=== PATIENT | female | born 1995 | race Caucasian/White ===

== ENCOUNTER 2017-11-07 14:07 | Observation (INO) | payer OTHER ==
[2017-11-07] MEDS ORDERED: NS 0.9% 1000 ML* 2,000 ML IV ONE (14:42)
[2017-11-07 15:19] LABS: ABS Basophils 0.1 10^3/ul (0-0.2); ABS Eosinophils 0 10^3/ul (0-0.6); ABS Lymphocytes 0.6 10^3/ul (1.0-4.8); ABS Monocytes 0.6 10^3/ul (0-0.8); ABS Nucleated RBC 0 10^3/ul; Eosinophil % 0.1 % (0-6); Hematocrit 39 % (35-47); Hemoglobin 13.6 g/dl (12.0-16.0); Lymphocyte % 4.3 % (25-47); Mean Corpuscular HGB Conc 35 g/dl (31-36); Mean Corpuscular Hemoglobin 30 pg (27-31); Mean Corpuscular Volume 86 fL (80-97); Mean Platelet Volume 7.6 um3 (7.4-10.4); Nucleated Red Blood Cells % 0; Platelet Count 370 10^3/ul (150-450); Red Blood Count 4.58 10^6/ul (4.00-5.40); Red Cell Distribution Width 12 % (10.5-15); White Blood Count 14.4 10^3/ul (3.5-10.8)
[2017-11-07 15:21] LABS: Urine Appearance Cloudy; Urine Blood Negative (Negative); Urine Color Amber; Urine Ketones 2+ (Negative); Urine Protein 1+(30 mg/dL) (Negative); Urine Red Blood Cell 1+(3-5/hpf) (Absent); Urine Specific Gravity 1.027 (1.010-1.030); Urine Urobilinogen Negative (Negative); Urine White Blood Cell 1+(6-10/hpf) (Absent)
[2017-11-07 15:27] LABS: INR 1.08 (0.77-1.02)
[2017-11-07 15:38] LABS: EGFR Non-African American 81.7 (>60)
[2017-11-07] MEDS ORDERED: cefTRIAXone(*) 1 GM in NS 0.9% 50 ML* 50 ML IVPB ONE (16:12)
[2017-11-07] MEDS ORDERED: Morphine VIAL* 4 MG/ML VIAL (1 ml vial) IV ONE ×2 (16:23→16:49)
[2017-11-07] MEDS ORDERED: Ondansetron ODT TAB* 4 MG PO ONE (16:23)
[2017-11-07] MEDS ORDERED: Iohexol 350* (CONTRAST) 500 ML MDV IV ONE (16:24)
[2017-11-07] MEDS ORDERED: Acetaminophen TAB* 325 MG PO ONE (16:30)
--- NOTE | 2017-11-07 17:43 | RAD ---
INDICATION: 21-year-old with cough and right flank pain. Assess for pulmonary embolus or pyelonephritis. COMPARISON: None TECHNIQUE: Axial source images were obtained from the thoracic inlet to the symphysis pubis following administration of oral contrast only and using CT and radiographic technique 79 mL Omnipaque 350 was utilized. Coronal and sagittal reconstructed images were acquired. CHEST FINDINGS: Neck/thyroid: The visualized neck to include the thyroid appear normal. Chest wall: There is dense breast parenchyma which is not unusual for patient's age. However, there are multiple areas of parenchymal nodularity most conspicuous in the left and measuring up to 2.8 cm which may represent solid lesions such as fibroadenomas. There is no supraclavicular, infraclavicular, or axillary lymphadenopathy. Lungs : There is large area of consolidation superior segment of the right lower lobe. There are some peripheral air bronchograms but centrally there is dense consolidative change and there may in fact be early central necrosis. This masslike focus measures measures 4.2 cm in transverse dimension. There is a satellite area of airspace disease that is slightly cephalad in location and measures approximately 2 cm. There are no additional focal lung parenchymal findings. Cardiomediastinal structures: The heart is normal in size. There is no pericardial effusion. There is no evidence of aortic aneurysm or dissection. The pulmonary vessels appear normal. There is no CT evidence of acute pulmonary embolic disease. There is no mediastinal or hilar adenopathy. The esophagus appears normal. Pleura : There are no pleural-based masses or effusions. ABDOMINAL/PELVIC FINDINGS: Liver: The liver is normal in size. There are no masses. There is focal fatty infiltration near the falciform ligament There is no ductal dilatation. Gallbladder: There are no calcified gallstones. There is no evidence of wall thickening or pericholecystic fluid. Spleen: The spleen is top-normal in size. There are no masses. Pancreas: There is no evidence of pancreatic mass or ductal dilatation. Adrenal glands: There is no evidence of adrenal mass. Kidneys: The kidneys are normal in size and position. There are prompt nephrograms and there is prompt excretion bilaterally. There are no renal parenchymal masses. There is a nonobstructive, lower pole right renal calculus Adenopathy: There is no evidence of adenopathy by size criteria. Fluid collections: There are no free or localized fluid collections. Vessels:The aorta and IVC appear normal GI tract: Noncontrast imaging dosage no specific abnormalities.. Pelvic organs: The uterus and adnexa appear normal Bladder: There are no bladder masses. Abdominal and pelvic soft tissues: The extraperitoneal abdominal and pelvic soft tissues appear normal.. Osseous structures: There are no acute osseous findings. IMPRESSION: 1. No CT evidence of acute pulmonary embolic disease. 2. Masslike lesions right chest likely infectious. There is a possibility that the dominant lesion may represent an early lung abscess. 3. Suspect breast fibroadenomas. Suggest out patient four-quadrant breast sonography for follow-up. 4. Nonobstructive right renal calculus
--- NOTE | 2017-11-07 17:44 | ED ---
Back Pain - HPI Summary HPI Summary: Healthy 21 y.o. female (born prematurely 6 weeks and healthier of 2 twins) presents with right-sided flank/rib pain for the past 3 days. This has been worsening to the point where she could not tolerate the pain anymore today so came in for evaluation. Associated sx include decreased appetite of unknown origin - denies nausea, vomiting, diarrhea - just hasn't eaten since yesterday at noon. Better w/ resting - worse w/ movement. Cannot say if it's worse w/ deep breath or cough. H/o injury to her lower back but this feels different. She denies fever, chills, headache, chest pain, palpitations, increased heart rate, hemoptysis, abdominal pain, urinary frequency/urgency/dysuria/hesitation or pressure. Admits to mild cough and denies SOB until today. No sick contacts or other URI sx and no h/o pulmonary dz including but not limited to PNA, bronchitis, asthma, etc. She lives in the basement of her boyfriend's parents' house - smells musty but no one else has sx of illness. Additionally, she admits to sexual activity and takes OBC's for about 1 year now. Denies vaginal discharge, irritation, pain/pressure. No smoking, travel, trauma, h/o cancer or clotting in self or family. - History of Current Complaint Chief Complaint: EDFlankPain Stated Complaint: RT FLANK PAIN,DIFF BREATHING Time Seen by Provider: 11/07/17 14:19 Hx Obtained From: Patient, Family/Frame Repairer - mom Pain Intensity: 8 - Allergies/Home Medications Allergies/Adverse Reactions: Allergies Allergy/AdvReac Type Severity Reaction Status Date / Time No Known Allergies Allergy Verified 11/07/17 14:13 Home Medications: Home Medications Norgestimate-Ethinyl Estradiol [Martin-Linyah 28 Tablet] 1 tab PO DAILY 11/07/17 [ History Confirmed 11/07/17] Zonisamide(NF) [Zonegran(NF)] 300 mg PO QPM 11/07/17 [History Confirmed 11/07/17 ] PMH/Surg Hx/FS Hx/Imm Hx Previously Healthy: Yes Endocrine/Hematology History: Denies: Hx Anticoagulant Therapy, Hx Blood Disorders, Hx Diabetes, Hx Unexplained Bleeding, Hx Coagulopothy, Autoimmune Disease Cardiovascular History: Denies: Hx Hypertension, Hx Pacemaker/ICD Respiratory History: Denies: Hx Asthma, Hx Cystic Fibrosis, Hx Lung Cancer, Hx Pleural Effusion, Hx Pneumonia, Hx Pulmonary Edema, Hx Pulmonary Embolism, Hx Seasonal Allergies GI History: Denies: Hx Crohn's Disease, Hx Gall Bladder Disease, Hx Gastroesophageal Reflux Disease, Hx Gastrointestinal Bleed, Hx Hiatal Hernia, Hx Irritable Bowel , Hx Ulcer History: Denies: Hx Kidney Infection, Hx Kidney Stones, Hx Renal Disease Musculoskeletal History: Reports: Hx Back Problems - injured back as child - occasional back pain "hips are uneven" - chiro help Denies: Hx Arthritis, Hx Orthopedic Injury, Hx Osteoporosis Sensory History: Denies: Hx Hearing Aid Psychiatric History: Reports: Hx Anxiety, Hx Depression, Hx Suicide Attempt Denies: Hx Panic Disorder, Hx of Violent Episodes Against Others - Immunization History Immunizations Up to Date: Yes Infectious Disease History: No Infectious Disease History: Denies: Traveled Outside the [place] in Last 30 Days - Family History Known Family History: Positive: None - Social History Occupation: Student Lives: With Family Alcohol Use: None Hx Substance Use: No Substance Use Type: Reports: None Hx Tobacco Use: No Smoking Status (MU): Never Smoked Tobacco Review of Systems Constitutional: Negative Negative: Fever, Chills, Fatigue Eyes: Negative ENT: Negative Positive: Shortness Of Breath, Cough Gastrointestinal: Other - not eating Positive: flank pain. Negative: burning, dysuria, discharge, frequency, incontinence, pain, urgency Musculoskeletal: Other - Rt flank/back pain Skin: Negative Neurological: Negative Psychological: Normal All Other Systems Reviewed And Are Negative: Yes Physical Exam Triage Information Reviewed: Yes Vital Signs On Initial Exam: Initial Vitals Temp Pulse Resp BP Pulse Ox 97.8 F 120 16 128/88 99 11/07/17 14:10 11/07/17 14:10 11/07/17 14:10 11/07/17 14:10 11/07/17 14:10 Vital Signs Reviewed: Yes Appearance: Positive: Ill-Appearing, Pain Distress - mild at rest but braces at times, Thin Skin: Positive: Warm, Skin Color Reflects Adequate Perfusion, Dry - borderline jaundice Head/Face: Positive: Normal Head/Face Inspection Eyes: Positive: Normal, EOMI, SANJUANITA, Conjunctiva Clear - anicteric sclera ENT: Positive: Hearing grossly normal, Pharynx normal - mucosa dry - scalloped tongue. Negative: Nasal congestion, Nasal drainage, Trismus, Muffled voice Neck: Positive: Supple, Nontender, No Lymphadenopathy Respiratory/Lung Sounds: Positive: Clear to Auscultation, Breath Sounds Present , Fatigue. Negative: Rales, Rhonchi, Subcutaneous Emphysema, Stridor, Tracheal Deviation, Wheezes, Unable to speak in full sentences Cardiovascular: Positive: Tachycardia, S1, S2. Negative: Murmur, Rub, Leg Edema Left, Leg Edema Right - (-) Andrés's B/L Abdomen Description: Positive: Nontender, No Organomegaly, Soft. Negative: CVA Tenderness (R), CVA Tenderness (L), Distended, Guarding Bowel Sounds: Positive: Present Pelvic Exam: Positive: Other - deferred - no lower ab pain or tenderness Musculoskeletal: Positive: Normal, Strength/ROM Intact Neurological: Positive: Normal, Sensory/Motor Intact, Alert, Oriented to Person Place, Time, CN Intact II-III Psychiatric: Positive: Other - low mood - appears fatigued Diagnostics - Vital Signs Vital Signs Temp Pulse Resp BP Pulse Ox 11/07/17 16:56 22 11/07/17 16:11 102 128/77 99 11/07/17 14:10 97.8 F 120 16 128/88 99 - Laboratory Lab Results: Lab Results 11/07/17 11/07/17 11/07/17 Range/Units 15:08 15:08 15:08 WBC 14.4 H (3.5-10.8) 10^3/ul RBC 4.58 (4.00-5.40) 10^6/ul Hgb 13.6 (12.0-16.0) g/dl Hct 39 (35-47) % MCV 86 (80-97) fL MCH 30 (27-31) pg MCHC 35 (31-36) g/dl RDW 12 (10.5-15) % Plt Count 370 (150-450) 10^3/ul MPV 7.6 (7.4-10.4) um3 Neut % (Auto) 90.6 H (38-83) % Lymph % (Auto) 4.3 L (25-47) % Martin % (Auto) 4.5 (0-7) % Eos % (Auto) 0.1 (0-6) % Baso % (Auto) 0.5 (0-2) % Absolute Neuts (auto) 13.0 H (1.5-7.7) 10^3/ul Absolute Lymphs (auto) 0.6 L (1.0-4.8) 10^3/ul Absolute Monos (auto) 0.6 (0-0.8) 10^3/ul Absolute Eos (auto) 0 (0-0.6) 10^3/ul Absolute Basos (auto) 0.1 (0-0.2) 10^3/ul Absolute Nucleated RBC 0 10^3/ul Nucleated RBC % 0 INR (Anticoag Therapy) (0.77-1.02) APTT (26.0-36.3) seconds D-Dimer, Quantitative (Less Than 230) ng/mL Sodium (135-145) mmol/L Potassium (3.5-5.0) mmol/L Chloride (101-111) mmol/L Carbon Dioxide (22-32) mmol/L Anion Gap (2-11) mmol/L BUN (6-24) mg/dL Creatinine (0.51-0.95) mg/dL Est GFR ( Amer) (>60) Est GFR (Non-Af Amer) (>60) BUN/Creatinine Ratio (8-20) Glucose (70-100) mg/dL Lactic Acid 1.0 (0.5-2.0) mmol/L Calcium (8.6-10.3) mg/dL Magnesium (1.9-2.7) mg/dL Total Bilirubin (0.2-1.0) mg/dL AST (13-39) U/L ALT (7-52) U/L Alkaline Phosphatase (34-104) U/L C-Reactive Protein (<8.01) mg/L Total Protein (6.4-8.9) g/dL Albumin (3.2-5.2) g/dL Globulin (2-4) g/dL Albumin/Globulin Ratio (1-3) Lipase (11.0-82.0) U/L Beta HCG, Quant mIU/mL Urine Color Pepper Urine Appearance Cloudy Urine pH 5.0 (5-9) Ur Specific [place] 1.027 (1.010-1.030) Urine Protein 1+(30 mg/dl) A (Negative) Urine Ketones 2+ A (Negative) Urine Blood Negative (Negative) Urine Nitrate Negative (Negative) Urine Bilirubin Negative (Negative) Urine Urobilinogen Negative (Negative) Ur Leukocyte Esterase Negative (Negative) Urine WBC (Auto) 1+(6-10/hpf) A (Absent) Urine RBC (Auto) 1+(3-5/hpf) A (Absent) Ur Squamous Epith Cells Present A (Absent) Urine Bacteria Absent (Absent) Urine Glucose Negative (Negative) 11/07/17 11/07/17 Range/Units 15:09 15:09 WBC (3.5-10.8) 10^3/ul RBC (4.00-5.40) 10^6/ul Hgb (12.0-16.0) g/dl Hct (35-47) % MCV (80-97) fL MCH (27-31) pg MCHC (31-36) g/dl RDW (10.5-15) % Plt Count (150-450) 10^3/ul MPV (7.4-10.4) um3 Neut % (Auto) (38-83) % Lymph % (Auto) (25-47) % Martin % (Auto) (0-7) % Eos % (Auto) (0-6) % Baso % (Auto) (0-2) % Absolute Neuts (auto) (1.5-7.7) 10^3/ul Absolute Lymphs (auto) (1.0-4.8) 10^3/ul Absolute Monos (auto) (0-0.8) 10^3/ul Absolute Eos (auto) (0-0.6) 10^3/ul Absolute Basos (auto) (0-0.2) 10^3/ul Absolute Nucleated RBC 10^3/ul Nucleated RBC % INR (Anticoag Therapy) 1.08 H (0.77-1.02) APTT 30.4 (26.0-36.3) seconds D-Dimer, Quantitative 337 H (Less Than 230) ng/mL Sodium 136 (135-145) mmol/L Potassium 3.6 (3.5-5.0) mmol/L Chloride 100 L (101-111) mmol/L Carbon Dioxide 19 L (22-32) mmol/L Anion Gap 17 H (2-11) mmol/L BUN 11 (6-24) mg/dL Creatinine 0.89 (0.51-0.95) mg/dL Est GFR ( Amer) 98.9 (>60) Est GFR (Non-Af Amer) 81.7 (>60) BUN/Creatinine Ratio 12.4 (8-20) Glucose 90 (70-100) mg/dL Lactic Acid (0.5-2.0) mmol/L Calcium 9.7 (8.6-10.3) mg/dL Magnesium 2.0 (1.9-2.7) mg/dL Total Bilirubin 0.80 (0.2-1.0) mg/dL AST 11 L (13-39) U/L ALT 8 (7-52) U/L Alkaline Phosphatase 77 (34-104) U/L C-Reactive Protein 124.54 H (<8.01) mg/L Total Protein 8.0 (6.4-8.9) g/dL Albumin 3.9 (3.2-5.2) g/dL Globulin 4.1 H (2-4) g/dL Albumin/Globulin Ratio 1.0 (1-3) Lipase < 10 L (11.0-82.0) U/L Beta HCG, Quant < 0.60 mIU/mL Urine Color Urine Appearance Urine pH (5-9) Ur Specific [place] (1.010-1.030) Urine Protein (Negative) Urine Ketones (Negative) Urine Blood (Negative) Urine Nitrate (Negative) Urine Bilirubin (Negative) Urine Urobilinogen (Negative) Ur Leukocyte Esterase (Negative) Urine WBC (Auto) (Absent) Urine RBC (Auto) (Absent) Ur Squamous Epith Cells (Absent) Urine Bacteria (Absent) Urine Glucose (Negative) Result Diagrams: 11/07/17 15:08 11/07/17 15:09 Lab Statement: Any lab studies that have been ordered have been reviewed, and results considered in the medical decision making process. Re-Evaluation - Re-Evaluation First Eval Change: Worse - pain worsening and pt coughing more with IVF Second Eval Change: Improved - pain improved s/p morphine and acetaminophen - the latter was given as pt developed a fever while here - 100.6 temporal. Requesting food. Back Pain Course/Dx - Course Course Of Treatment: Spoke w/ radiologist who suspects lung abscess vs. round PNA - tx'd infection upon identification of elevated WBC's w/ left shift, CRP and fever. Discussed results w/ pt and mom. Spoke w/ Dr. Cam peds, who declines admission. Dr. Garcia in to admit pt - stable condition, pain improved at time of transition of care. NOTE: pt aware to f/u outpt for fibrocystic breast changes. - Diagnoses Provider Diagnoses: Mass of right lung, Fibrocystic breast changes of both breasts Discharge - Sign-Out/Discharge Documenting (check all that apply): Patient Departure - Discharge Plan Condition: Stable Disposition: ADMITTED TO [facility] - Billing Disposition and Condition Condition: STABLE Disposition: Admitted to [facility]
[2017-11-07] MEDS: metroNIDAZOLE IV 500 MG/100ML* 500 MG/100 ML BAG IVPB SCH (19:09)
--- NOTE | 2017-11-07 19:15 | ADMNOTE ---
Subjective Date of Service: 11/07/17 Interval History: ADMISSION HISTORY AND PHYSICAL EXAM: Allergies Allergy/AdvReac Type Severity Reaction Status Date / Time No Known Allergies Allergy Verified 11/07/17 14:13 Home Medications Medication Instructions Recorded Confirmed Type Norgestimate-Ethinyl Estradiol 1 tab PO DAILY 11/07/17 11/07/17 History [[place]-Linyah] Zonisamide(NF) [Zonegran(NF)] 300 mg PO QPM 11/07/17 11/07/17 History HPI: The patient was in her usual state of health until about 2 1/2 weeks ago when she developed a mild dry cough. Last evening she developed R lower lateral chest pain. It became more severe this AM and she came to the ED. After morphine the pain was level 2/10. She never had chills or sweats, no sputum. Family History: Findings - Parents and brother alll [employer]. Social History: Findings - Lives with her boyfriend. Off work in [place]. Never smoked, no alcohol or drug use. Past Medical History: Findings - Born with twin brother, in NICU for about a week. Sledding accident 2009, chronic R hip pain since then. Seizures since age 17. Tubular adenoma removed from L breast 10/2015 Review of Systems - Measurements Intake and Output: Intake and Output Last 24 Hours 11/05/17 11/06/17 11/07/17 11/08/17 06:59 06:59 06:59 06:59 Intake Total 2100 Balance 2100 Weight 129 lb Intake: IV Fluids 2100 - Review of Systems Constitutional Symptoms: Negative: Weight Gain, Weight Loss, Weakness, Fatigue, Fever, Night Sweats, Unexplained Falls, Other Dermatology: Positive: Normal HEENT: Positive: Normal Eyes: Positive: Normal Thyroid: Positive: Normal Pulmonary: Positive: Cough Cardiology: Positive: Chest Pain Gastroenterology: Positive: Normal Genital - Urinary: Positive: Normal Genitourinay - Female: Positive: Menses Normal Musculoskeletal: Positive: Joint Pain Endocrinology: Positive: Normal Hematologic/Lymphatic: Negative: Anemia, Easy Brusing, Hx Leukemia, Hx Lymphoma, Use of Anticoagulant, Use of Antiplatelet Drugs, Other Neurology: Positive: Normal Psychiatry: Positive: Normal Allergic/Immunologic: Negative: Hx Anaphylaxis, Hx Angioedema, Hx Environmental, Hx Seasonal, Athsma, Hx HIV, Immunocompromise, Swollen Glands LymphNodes, Other Objective Active Medications: Metronidazole/Sodium Chloride (Flagyl 500 Mg Ivpb*) 500 mg in 100 mls @ 100 mls /hr IVPB Q8H [facility] Vital Signs - 8 hr 11/07/17 11/07/17 11/07/17 14:10 16:11 16:56 Temperature 97.8 F Pulse Rate 120 102 Respiratory 16 22 Rate Blood Pressure 128/88 128/77 (mmHg) O2 Sat by Pulse 99 99 Oximetry 11/07/17 18:59 Temperature Pulse Rate Respiratory 16 Rate Blood Pressure (mmHg) O2 Sat by Pulse Oximetry Oxygen Devices in Use Now: None Eyes: No Scleral Icterus Ears/Nose/Mouth/Throat: Clear Oropharnyx, Mucous Membranes Moist Neck: NL Appearance and Movements; NL JVP, No Thyroid Enlargement, Masses Respiratory: Symmetrical Chest Expansion and Respiratory Effort, Clear to Auscultation, Clear to Percussion Cardiovascular: NL Sounds; No Murmurs; No JVD, RRR, No Edema, - Abdominal: NL Sounds; No Tenderness; No Distention, No Hepatosplenomegaly, - Lymphatic: No Cervical Adenopathy, No Axillary Adenopathy Extremities: No Edema, No Clubbing, Cyanosis, - Skin: No Rash or Ulcers, No Nodules or Sclerosis, - Neurological: Alert and Oriented x 3, NL Sensation Result Diagrams: 11/07/17 15:08 11/07/17 15:09 Additional Lab and Data: Lab Results 11/07/17 11/07/17 11/07/17 Range/Units 15:08 15:08 15:08 WBC 14.4 H (3.5-10.8) 10^3/ul RBC 4.58 (4.00-5.40) 10^6/ul Hgb 13.6 (12.0-16.0) g/dl Hct 39 (35-47) % MCV 86 (80-97) fL MCH 30 (27-31) pg MCHC 35 (31-36) g/dl RDW 12 (10.5-15) % Plt Count 370 (150-450) 10^3/ul MPV 7.6 (7.4-10.4) um3 Neut % (Auto) 90.6 H (38-83) % Lymph % (Auto) 4.3 L (25-47) % [place] % (Auto) 4.5 (0-7) % Eos % (Auto) 0.1 (0-6) % Baso % (Auto) 0.5 (0-2) % Absolute Neuts (auto) 13.0 H (1.5-7.7) 10^3/ul Absolute Lymphs (auto) 0.6 L (1.0-4.8) 10^3/ul Absolute Monos (auto) 0.6 (0-0.8) 10^3/ul Absolute Eos (auto) 0 (0-0.6) 10^3/ul Absolute Basos (auto) 0.1 (0-0.2) 10^3/ul Absolute Nucleated RBC 0 10^3/ul Nucleated RBC % 0 INR (Anticoag Therapy) (0.77-1.02) APTT (26.0-36.3) seconds D-Dimer, Quantitative (Less Than 230) ng/mL Sodium (135-145) mmol/L Potassium (3.5-5.0) mmol/L Chloride (101-111) mmol/L Carbon Dioxide (22-32) mmol/L Anion Gap (2-11) mmol/L BUN (6-24) mg/dL Creatinine (0.51-0.95) mg/dL Est GFR ( Amer) (>60) Est GFR (Non-Af Amer) (>60) BUN/Creatinine Ratio (8-20) Glucose (70-100) mg/dL Lactic Acid 1.0 (0.5-2.0) mmol/L Calcium (8.6-10.3) mg/dL Magnesium (1.9-2.7) mg/dL Total Bilirubin (0.2-1.0) mg/dL AST (13-39) U/L ALT (7-52) U/L Alkaline Phosphatase (34-104) U/L C-Reactive Protein (<8.01) mg/L Total Protein (6.4-8.9) g/dL Albumin (3.2-5.2) g/dL Globulin (2-4) g/dL Albumin/Globulin Ratio (1-3) Lipase (11.0-82.0) U/L Beta HCG, Quant mIU/mL Urine Color Pepper Urine Appearance Cloudy Urine pH 5.0 (5-9) Ur Specific [place] 1.027 (1.010-1.030) Urine Protein 1+(30 mg/dl) A (Negative) Urine Ketones 2+ A (Negative) Urine Blood Negative (Negative) Urine Nitrate Negative (Negative) Urine Bilirubin Negative (Negative) Urine Urobilinogen Negative (Negative) Ur Leukocyte Esterase Negative (Negative) Urine WBC (Auto) 1+(6-10/hpf) A (Absent) Urine RBC (Auto) 1+(3-5/hpf) A (Absent) Ur Squamous Epith Cells Present A (Absent) Urine Bacteria Absent (Absent) Urine Glucose Negative (Negative) 11/07/17 11/07/17 Range/Units 15:09 15:09 WBC (3.5-10.8) 10^3/ul RBC (4.00-5.40) 10^6/ul Hgb (12.0-16.0) g/dl Hct (35-47) % MCV (80-97) fL MCH (27-31) pg MCHC (31-36) g/dl RDW (10.5-15) % Plt Count (150-450) 10^3/ul MPV (7.4-10.4) um3 Neut % (Auto) (38-83) % Lymph % (Auto) (25-47) % [place] % (Auto) (0-7) % Eos % (Auto) (0-6) % Baso % (Auto) (0-2) % Absolute Neuts (auto) (1.5-7.7) 10^3/ul Absolute Lymphs (auto) (1.0-4.8) 10^3/ul Absolute Monos (auto) (0-0.8) 10^3/ul Absolute Eos (auto) (0-0.6) 10^3/ul Absolute Basos (auto) (0-0.2) 10^3/ul Absolute Nucleated RBC 10^3/ul Nucleated RBC % INR (Anticoag Therapy) 1.08 H (0.77-1.02) APTT 30.4 (26.0-36.3) seconds D-Dimer, Quantitative 337 H (Less Than 230) ng/mL Sodium 136 (135-145) mmol/L Potassium 3.6 (3.5-5.0) mmol/L Chloride 100 L (101-111) mmol/L Carbon Dioxide 19 L (22-32) mmol/L Anion Gap 17 H (2-11) mmol/L BUN 11 (6-24) mg/dL Creatinine 0.89 (0.51-0.95) mg/dL Est GFR ( Amer) 98.9 (>60) Est GFR (Non-Af Amer) 81.7 (>60) BUN/Creatinine Ratio 12.4 (8-20) Glucose 90 (70-100) mg/dL Lactic Acid (0.5-2.0) mmol/L Calcium 9.7 (8.6-10.3) mg/dL Magnesium 2.0 (1.9-2.7) mg/dL Total Bilirubin 0.80 (0.2-1.0) mg/dL AST 11 L (13-39) U/L ALT 8 (7-52) U/L Alkaline Phosphatase 77 (34-104) U/L C-Reactive Protein 124.54 H (<8.01) mg/L Total Protein 8.0 (6.4-8.9) g/dL Albumin 3.9 (3.2-5.2) g/dL Globulin 4.1 H (2-4) g/dL Albumin/Globulin Ratio 1.0 (1-3) Lipase < 10 L (11.0-82.0) U/L Beta HCG, Quant < 0.60 mIU/mL Urine Color Urine Appearance Urine pH (5-9) Ur Specific [place] (1.010-1.030) Urine Protein (Negative) Urine Ketones (Negative) Urine Blood (Negative) Urine Nitrate (Negative) Urine Bilirubin (Negative) Urine Urobilinogen (Negative) Ur Leukocyte Esterase (Negative) Urine WBC (Auto) (Absent) Urine RBC (Auto) (Absent) Ur Squamous Epith Cells (Absent) Urine Bacteria (Absent) Urine Glucose (Negative) Assess/Plan/Problems-Billing Assessment: - Patient Problems (1) Lung mass Current Visit: Yes Status: Acute Code(s): R91.8 - OTHER NONSPECIFIC ABNORMAL FINDING OF LUNG FIELD SNOMED Code(s): 844009809 Comment: Pneumonia vs pulmonary sequestration vs abcess vs other. Ceftriaxone + metro. Dr. Heath 's consultation appreciated. CT lung bx requested for 11/08. Tests for Ricky's ordered. (2) Seizure disorder Current Visit: Yes Status: Acute Code(s): G40.909 - EPILEPSY, UNSP, NOT INTRACTABLE, WITHOUT STATUS EPILEPTICUS SNOMED Code(s): 738530519 Comment: Continue zonisamide. She has about 1 seizure a year. Fup Dr. Mujica.
[2017-11-07] MEDS ORDERED: ZONISAMIDE 100 MG PO SCH (21:00)
[2017-11-07] MEDS: oxyCODONE TAB* 5 MG TAB PO PRN (21:15)
[2017-11-07] MEDS: CMCS:Zonisamide (NF) 50 MG CAP PO SCH (21:20)
[2017-11-08] MEDS: metroNIDAZOLE IV 500 MG/100ML* 500 MG/100 ML BAG IVPB SCH (03:06)
--- NOTE | 2017-11-08 07:41 | PN ---
Subjective Date of Service: 11/08/17 Interval History: Pain controlled well with oral analgesic. No chills, sweats. No sputum, little cough. No BM for 2 days. Family History: Findings - Parents and brother alise A&W. Social History: Findings - Lives with her boyfriend. Off work in [place]. Never smoked, no alcohol or drug use. Past Medical History: Findings - Born with twin brother, in NICU for about a week. Sledding accident 2009, chronic R hip pain since then. Seizures since age 17. Tubular adenoma removed from L breast 10/2015 Objective Active Medications: Metronidazole/Sodium Chloride (Flagyl 500 Mg Ivpb*) 500 mg in 100 mls @ 100 mls /hr IVPB Q8H KEYLA Last Admin: 11/08/17 03:06 Dose: 100 mls/hr Ceftriaxone Sodium 1 gm/ (Sodium Chloride) 50 mls @ 200 mls/hr IVPB Q24H KEYLA Oxycodone HCl (Roxycodone Tab*) 5 mg PO Q4H PRN PRN Reason: PAIN Last Admin: 11/07/17 21:15 Dose: 5 mg Zonisamide (Zonegran (Nf)) 300 mg PO DAILY KEYLA Last Admin: 11/07/17 21:20 Dose: Not Given Vital Signs - 8 hr 11/07/17 11/08/17 23:45 03:09 Pulse Rate 80 Respiratory 15 16 Rate Blood Pressure 106/65 (mmHg) O2 Sat by Pulse 100 Oximetry Oxygen Devices in Use Now: None Appearance: Alert, partly up in bed. In good spirits, somewhat anxious, otherwise looks comfortable. Eyes: No Scleral Icterus Respiratory: Symmetrical Chest Expansion and Respiratory Effort, Clear to Auscultation, Clear to Percussion Cardiovascular: NL Sounds; No Murmurs; No JVD, RRR, No Edema, - Extremities: No Edema, No Clubbing, Cyanosis, - Skin: No Rash or Ulcers, No Nodules or Sclerosis, - Result Diagrams: 11/07/17 15:08 11/07/17 15:09 Additional Lab and Data: Lab Results 11/07/17 11/07/17 11/07/17 Range/Units 15:08 15:08 15:08 WBC 14.4 H (3.5-10.8) 10^3/ul RBC 4.58 (4.00-5.40) 10^6/ul Hgb 13.6 (12.0-16.0) g/dl Hct 39 (35-47) % MCV 86 (80-97) fL MCH 30 (27-31) pg MCHC 35 (31-36) g/dl RDW 12 (10.5-15) % Plt Count 370 (150-450) 10^3/ul MPV 7.6 (7.4-10.4) um3 Neut % (Auto) 90.6 H (38-83) % Lymph % (Auto) 4.3 L (25-47) % [place] % (Auto) 4.5 (0-7) % Eos % (Auto) 0.1 (0-6) % Baso % (Auto) 0.5 (0-2) % Absolute Neuts (auto) 13.0 H (1.5-7.7) 10^3/ul Absolute Lymphs (auto) 0.6 L (1.0-4.8) 10^3/ul Absolute Monos (auto) 0.6 (0-0.8) 10^3/ul Absolute Eos (auto) 0 (0-0.6) 10^3/ul Absolute Basos (auto) 0.1 (0-0.2) 10^3/ul Absolute Nucleated RBC 0 10^3/ul Nucleated RBC % 0 INR (Anticoag Therapy) (0.77-1.02) APTT (26.0-36.3) seconds D-Dimer, Quantitative (Less Than 230) ng/mL Sodium (135-145) mmol/L Potassium (3.5-5.0) mmol/L Chloride (101-111) mmol/L Carbon Dioxide (22-32) mmol/L Anion Gap (2-11) mmol/L BUN (6-24) mg/dL Creatinine (0.51-0.95) mg/dL Est GFR ( Amer) (>60) Est GFR (Non-Af Amer) (>60) BUN/Creatinine Ratio (8-20) Glucose (70-100) mg/dL Lactic Acid 1.0 (0.5-2.0) mmol/L Calcium (8.6-10.3) mg/dL Magnesium (1.9-2.7) mg/dL Total Bilirubin (0.2-1.0) mg/dL AST (13-39) U/L ALT (7-52) U/L Alkaline Phosphatase (34-104) U/L C-Reactive Protein (<8.01) mg/L Total Protein (6.4-8.9) g/dL Albumin (3.2-5.2) g/dL Globulin (2-4) g/dL Albumin/Globulin Ratio (1-3) Lipase (11.0-82.0) U/L Beta HCG, Quant mIU/mL Urine Color Pepper Urine Appearance Cloudy Urine pH 5.0 (5-9) Ur Specific [place] 1.027 (1.010-1.030) Urine Protein 1+(30 mg/dl) A (Negative) Urine Ketones 2+ A (Negative) Urine Blood Negative (Negative) Urine Nitrate Negative (Negative) Urine Bilirubin Negative (Negative) Urine Urobilinogen Negative (Negative) Ur Leukocyte Esterase Negative (Negative) Urine WBC (Auto) 1+(6-10/hpf) A (Absent) Urine RBC (Auto) 1+(3-5/hpf) A (Absent) Ur Squamous Epith Cells Present A (Absent) Urine Bacteria Absent (Absent) Urine Glucose Negative (Negative) 11/07/17 11/07/17 Range/Units 15:09 15:09 WBC (3.5-10.8) 10^3/ul RBC (4.00-5.40) 10^6/ul Hgb (12.0-16.0) g/dl Hct (35-47) % MCV (80-97) fL MCH (27-31) pg MCHC (31-36) g/dl RDW (10.5-15) % Plt Count (150-450) 10^3/ul MPV (7.4-10.4) um3 Neut % (Auto) (38-83) % Lymph % (Auto) (25-47) % [place] % (Auto) (0-7) % Eos % (Auto) (0-6) % Baso % (Auto) (0-2) % Absolute Neuts (auto) (1.5-7.7) 10^3/ul Absolute Lymphs (auto) (1.0-4.8) 10^3/ul Absolute Monos (auto) (0-0.8) 10^3/ul Absolute Eos (auto) (0-0.6) 10^3/ul Absolute Basos (auto) (0-0.2) 10^3/ul Absolute Nucleated RBC 10^3/ul Nucleated RBC % INR (Anticoag Therapy) 1.08 H (0.77-1.02) APTT 30.4 (26.0-36.3) seconds D-Dimer, Quantitative 337 H (Less Than 230) ng/mL Sodium 136 (135-145) mmol/L Potassium 3.6 (3.5-5.0) mmol/L Chloride 100 L (101-111) mmol/L Carbon Dioxide 19 L (22-32) mmol/L Anion Gap 17 H (2-11) mmol/L BUN 11 (6-24) mg/dL Creatinine 0.89 (0.51-0.95) mg/dL Est GFR ( Amer) 98.9 (>60) Est GFR (Non-Af Amer) 81.7 (>60) BUN/Creatinine Ratio 12.4 (8-20) Glucose 90 (70-100) mg/dL Lactic Acid (0.5-2.0) mmol/L Calcium 9.7 (8.6-10.3) mg/dL Magnesium 2.0 (1.9-2.7) mg/dL Total Bilirubin 0.80 (0.2-1.0) mg/dL AST 11 L (13-39) U/L ALT 8 (7-52) U/L Alkaline Phosphatase 77 (34-104) U/L C-Reactive Protein 124.54 H (<8.01) mg/L Total Protein 8.0 (6.4-8.9) g/dL Albumin 3.9 (3.2-5.2) g/dL Globulin 4.1 H (2-4) g/dL Albumin/Globulin Ratio 1.0 (1-3) Lipase < 10 L (11.0-82.0) U/L Beta HCG, Quant < 0.60 mIU/mL Urine Color Urine Appearance Urine pH (5-9) Ur Specific [place] (1.010-1.030) Urine Protein (Negative) Urine Ketones (Negative) Urine Blood (Negative) Urine Nitrate (Negative) Urine Bilirubin (Negative) Urine Urobilinogen (Negative) Ur Leukocyte Esterase (Negative) Urine WBC (Auto) (Absent) Urine RBC (Auto) (Absent) Ur Squamous Epith Cells (Absent) Urine Bacteria (Absent) Urine Glucose (Negative) Assess/Plan/Problems-Billing Assessment: - Patient Problems (1) Lung mass Status: Acute Code(s): R91.8 - OTHER NONSPECIFIC ABNORMAL FINDING OF LUNG FIELD SNOMED Code(s): 878467122 Comment: Pneumonia vs pulmonary sequestration vs abcess vs other. Ceftriaxone + metro. Dr. Heath 's consultation appreciated. CT lung bx will be done as outpt. Tests for Ricky's ordered. Discharge on 6 more days po antibiotics. (2) Seizure disorder Status: Acute Code(s): G40.909 - EPILEPSY, UNSP, NOT INTRACTABLE, WITHOUT STATUS EPILEPTICUS SNOMED Code(s): 560422444 Comment: Continue zonisamide. She has about 1 seizure a year. Fup Dr. Mujica. Status and Disposition: Discharge now. Fup Dr. Heath, [facility].
[2017-11-08 08:00] VITALS: BP 112/70
[2017-11-08] MEDS: CMCS:Zonisamide (NF) 50 MG CAP PO SCH (08:38)
[2017-11-08] MEDS: oxyCODONE TAB* 5 MG TAB PO PRN (08:39)
--- NOTE | 2017-11-08 08:54 | PN ---
"Progress Note - Progress Note Date of Service: 11/08/17 Note: Search Terms: stefan wetzel, 1995 Search Date: 11/08/2017 08:53:51 AM The Drug Utilization Report below displays all of the controlled substance prescriptions, if any, that your patient has filled in the last twelve months. The information displayed on this report is compiled from pharmacy submissions to the Department, and accurately reflects the information as submitted by the pharmacies. This report was requested by: Kemal Garcia | Reference #: [id number] There are no results for the search terms that you entered."
[2017-11-08] MEDS ORDERED: metroNIDAZOLE TAB* 250 MG PO SCH (09:00)
[2017-11-08] MEDS ORDERED: ceFUROXime TAB(*) 250 MG PO SCH (09:00)
--- NOTE | 2017-11-08 10:00 | RAD ---
INDICATION: Microscopic hematuria. Renal stone on CT without obstruction COMPARISON: CT chest/abdomen/pelvis previous day TECHNIQUE: Longitudinal and transverse scans of the kidneys were obtained. FINDINGS: Kidneys: The kidneys are normal in size and echogenicity. There is a 0.4 cm mid pole right renal calculus. There is no obstruction. There are no renal masses. The right kidney measures 10.3 x 3.9 x 4.4 cm and the left kidney 9.6 x 4.6 x 4.3 cm. Other: None IMPRESSION: NONOBSTRUCTIVE RIGHT RENAL CALCULUS.
[2017-11-08] MEDS ORDERED: cefTRIAXone(*) 1 GM in NS 0.9% 50 ML* 50 ML IVPB SCH (16:30)
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
--- NOTE | 2017-11-08 23:55 | DS ---
CC: Fatemeh Stephen at [facility], Dr. Heath * DISCHARGE SUMMARY: DATE OF ADMISSION: DATE OF DISCHARGE: 11/08/17 HOSPITAL COURSE: This 21-year-old woman presented with right-sided chest pain. She had a very mild nonproductive cough for about two and a half weeks. The night before admission she developed right-sided chest pain and became quite severe in the morning. She presented to the emergency room, which was relieved with IV and later oral analgesics. She had no fever. She never had sweats or chills, so she never had a productive cough. She continues to have a mild cough in the hospital. CTA of the chest showed no evidence of pulmonary embolism. She had a very well demarcated density in the right mid lung field. Her white count and CRP were both somewhat elevated. She was started on ceftriaxone and metronidazole. She was seen in consultation by Dr. Heath. We are scheduling her to have a CT lung biopsy, this was not available on the day of discharge and will be scheduled as soon as it is available as an outpatient. Her pain was well controlled with oral oxycodone. Antinuclear antibody, ANCA panel, and rheumatoid factor tests will be sent off before her discharge. FINAL DIAGNOSES: 1. Abnormal CT of the chest. 2. Seizure disorder. DISCHARGE MEDICATIONS: 1. Cefuroxime 500 mg b.i.d. for 6 days. 2. Metronidazole 500 mg t.i.d. for 6 days. 3. Oxycodone 5 mg every 4 hours p.r.n., dispensed 30. 4. Zonisamide 300 mg daily. [id number]/[facility] #: [id number] [facility]
== END 2017-11-08 10:45 | disposition home or self-care (01) ==
LOC: ED 14:07 → MED 18:25
PROVIDERS: ADMIT Internal Medicine; ATTEND Internal Medicine
DX: R92.8 Other abnormal and inconclusive findings on diagnostic imaging of breast (principal); G40.909 Epilepsy, unspecified, not intractable, without status epilepticus; R10.84 Generalized abdominal pain; R06.02 Shortness of breath; R05 Cough
CPT/HCPCS: 36415; 71275; 74177; 76775; 80053; 81003; 81015; 83516; 83605; 83690; 83735; 84702; 85025; 85379; 85610; 85730; 86038; 86140; 86431; 87077; 87086; 87186; 96374; 96375; 99285; A9270-GY; G0378; J0696; J2270; J3490; Q9967

== ENCOUNTER 2017-11-11 08:11 | Emergency (ER) | payer OTHER ==
[2017-11-11 09:46] LABS: EGFR Non-African American 78.6 (>60)
--- NOTE | 2017-11-11 10:11 | RAD ---
INDICATION: Possible pneumonia. Persistent cough. COMPARISON: November 07, 2017 CT. TECHNIQUE: Dual energy PA and routine lateral views of the chest were obtained. REPORT: No significant change in magnitude of alveolar consolidation centered at the RIGHT lower lobe approximating the major fissure most suspicious for pneumonia. Negative for pleural effusions or pneumothorax. The heart, pulmonary vasculature, and mediastinal contours are unremarkable. IMPRESSION: #. Constellation of findings is most suspicious for rounded pneumonia. #. Absence of appropriate response to therapy would warrant reassessment to exclude neoplasm.
[2017-11-11 11:03] LABS: ABS Basophils 0.1 10^3/ul (0-0.2); ABS Eosinophils 0 10^3/ul (0-0.6); ABS Monocytes 0.6 10^3/ul (0-0.8); ABS Neutrophils 7.7 10^3/ul (1.5-7.7); ABS Nucleated RBC 0 10^3/ul; Eosinophil % 0.4 % (0-6); Hematocrit 41 % (35-47); Hemoglobin 13.9 g/dl (12.0-16.0); Lymphocyte % 10.2 % (25-47); Mean Corpuscular HGB Conc 34 g/dl (31-36); Mean Corpuscular Hemoglobin 30 pg (27-31); Mean Corpuscular Volume 87 fL (80-97); Nucleated Red Blood Cells % 0; Platelet Count 392 10^3/ul (150-450); Red Cell Distribution Width 13 % (10.5-15); White Blood Count 9.5 10^3/ul (3.5-10.8)
[2017-11-11 11:04] VITALS: BP 112/74
--- NOTE | 2017-11-11 12:54 | ED ---
HPI Cardiac - HPI Summary HPI Summary: Patient is a 21-year-old female who was admitted to the hospital 4 days ago for a likely right lower lobe pneumonia. She was given IV antibiotics and kept overnight for observation. She also is endorsing gross hematuria. Patient's mother is with her at bedside and states they are unsure if this is a pneumonia vs other pathology and will have a biopsy in 3 days, more specifically to assess for Ricky's. Patient presents today with a continuing concern of right -sided pain which is mild, 2/10. However, coupled with this and her hematuria she was concerned for any worsening infection. She continues to deny any fevers , sweats, chills, however she continues to endorse a nonproductive cough. 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 Onset/Duration: Started Hours Ago Timing: Constant Initial Severity: Moderate Current Severity: Moderate Pain Intensity: 4 Pain Scale Used: 0-10 Numeric Chest Pain Location: Right Lateral Chest Pain Radiates: No Aggravating Factor(s): Nothing Alleviating Factor(s): Nothing Associated Signs and Symptoms: Positive: Negative - Additional Pertinent History Primary Care Physician: MICAELA - Allergy/Home Medications Allergies/Adverse Reactions: Allergies Allergy/AdvReac Type Severity Reaction Status Date / Time No Known Allergies Allergy Verified 11/07/17 14:13 PMH/Surg Hx/FS Hx/Imm Hx Previously Healthy: Yes Endocrine/Hematology History: Denies: Hx Anticoagulant Therapy, Hx Blood Disorders, Hx Diabetes, Hx Unexplained Bleeding Cardiovascular History: Denies: Hx Hypertension, Hx Pacemaker/ICD Respiratory History: Denies: Hx Asthma, Hx Cystic Fibrosis, Hx Lung Cancer, Hx Pleural Effusion, Hx Pneumonia, Hx Pulmonary Edema, Hx Pulmonary Embolism, Hx Seasonal Allergies GI History: Denies: Hx Crohn's Disease, Hx Gall Bladder Disease, Hx Gastroesophageal Reflux Disease, Hx Gastrointestinal Bleed, Hx Hiatal Hernia, Hx Irritable Bowel , Hx Ulcer History: Denies: Hx Kidney Infection, Hx Kidney Stones, Hx Renal Disease Musculoskeletal History: Reports: Hx Back Problems - injured back as child - occasional back pain "hips are uneven" - chiro help Denies: Hx Arthritis, Hx Orthopedic Injury, Hx Osteoporosis Sensory History: Denies: Hx Contacts or Glasses, Hx Hearing Aid Opthamlomology History: Denies: Hx Contacts or Glasses Neurological History: Reports: Hx Headaches, Hx Seizures - Epilepsy Psychiatric History: Reports: Hx Anxiety, Hx Depression, Hx Suicide Attempt Denies: Hx Panic Disorder, Hx of Violent Episodes Against Others - Surgical History Surgery Procedure, Year, and Place: Removal tubular abnoma - Immunization History Hx Pertussis Vaccination: No Immunizations Up to Date: Unable to Obtain/Confirm Infectious Disease History: No Infectious Disease History: Denies: Traveled Outside the [place] in Last 30 Days - Family History Known Family History: Positive: None - Social History Occupation: Unemployed Lives: With Family Alcohol Use: None Hx Substance Use: No Substance Use Type: Reports: None Hx Tobacco Use: No Smoking Status (MU): Never Smoked Tobacco Review of Systems Constitutional: Negative Negative: Fever, Fatigue, Skin Diaphoresis Positive: Chest Pain - right sided chest wall pain. Negative: Palpitations Negative: Shortness Of Breath, Cough Positive: see HPI, other - hematuria Negative: Arthralgia, Myalgia, Decreased ROM Skin: Negative Neurological: Negative All Other Systems Reviewed And Are Negative: Yes Physical Exam Triage Information Reviewed: Yes Vital Signs On Initial Exam: Initial Vitals Temp Pulse Resp BP Pulse Ox 99.2 F 98 26 118/71 97 11/11/17 08:34 11/11/17 08:34 11/11/17 08:34 11/11/17 08:34 11/11/17 08:34 Vital Signs Reviewed: Yes Appearance: Positive: Well-Appearing, Well-Nourished Skin: Positive: Warm, Skin Color Reflects Adequate Perfusion Head/Face: Positive: Normal Head/Face Inspection Eyes: Positive: EOMI, SANJUANITA, Conjunctiva Clear Neck: Positive: Supple, No Lymphadenopathy Respiratory/Lung Sounds: Positive: Clear to Auscultation, Breath Sounds Present Cardiovascular: Positive: RRR, Pulses are Symmetrical in both Upper and Lower Extremities Musculoskeletal: Positive: Normal, Strength/ROM Intact Neurological: Positive: Speech Normal Psychiatric: Positive: Normal, Affect/Mood Appropriate AVPU Assessment: Alert Diagnostics - Vital Signs Vital Signs Temp Pulse Resp BP Pulse Ox 11/11/17 11:05 97.8 F 74 24 112/74 98 11/11/17 11:01 27 112/74 11/11/17 11:00 74 22 98 11/11/17 10:00 87 29 97 11/11/17 09:00 72 19 96 11/11/17 08:40 87 23 98 11/11/17 08:34 99.2 F 98 26 118/71 97 - Laboratory Lab Results: Lab Results 11/11/17 11/11/17 11/11/17 Range/Units 09:17 09:17 09:17 WBC 9.5 (3.5-10.8) 10^3/ul RBC 4.70 (4.00-5.40) 10^6/ul Hgb 13.9 (12.0-16.0) g/dl Hct 41 (35-47) % MCV 87 (80-97) fL MCH 30 (27-31) pg MCHC 34 (31-36) g/dl RDW 13 (10.5-15) % Plt Count 392 (150-450) 10^3/ul MPV 8.0 (7.4-10.4) um3 Neut % (Auto) 81.8 (38-83) % Lymph % (Auto) 10.2 L (25-47) % [place] % (Auto) 6.8 (0-7) % Eos % (Auto) 0.4 (0-6) % Baso % (Auto) 0.8 (0-2) % Absolute Neuts (auto) 7.7 (1.5-7.7) 10^3/ul Absolute Lymphs (auto) 1.0 (1.0-4.8) 10^3/ul Absolute Monos (auto) 0.6 (0-0.8) 10^3/ul Absolute Eos (auto) 0 (0-0.6) 10^3/ul Absolute Basos (auto) 0.1 (0-0.2) 10^3/ul Absolute Nucleated RBC 0 10^3/ul Nucleated RBC % 0 Sodium 139 (135-145) mmol/L Potassium 3.4 L (3.5-5.0) mmol/L Chloride 107 (101-111) mmol/L Carbon Dioxide 21 L (22-32) mmol/L Anion Gap 11 (2-11) mmol/L BUN 5 L (6-24) mg/dL Creatinine 0.92 (0.51-0.95) mg/dL Est GFR ( Amer) 95.2 (>60) Est GFR (Non-Af Amer) 78.6 (>60) BUN/Creatinine Ratio 5.4 L (8-20) Glucose 105 H (70-100) mg/dL Lactic Acid 1.0 (0.5-2.0) mmol/L Calcium 9.4 (8.6-10.3) mg/dL Total Bilirubin 0.50 (0.2-1.0) mg/dL AST 10 L (13-39) U/L ALT 6 L (7-52) U/L Alkaline Phosphatase 74 (34-104) U/L Total Creatine Kinase 14 (10-223) U/L Troponin I 0.00 (<0.04) ng/mL C-Reactive Protein 71.55 H (<8.01) mg/L Total Protein 7.3 (6.4-8.9) g/dL Albumin 3.7 (3.2-5.2) g/dL Globulin 3.6 (2-4) g/dL Albumin/Globulin Ratio 1.0 (1-3) Beta HCG, Quant 0.69 mIU/mL Result Diagrams: 11/11/17 09:17 11/11/17 09:17 Lab Statement: Any lab studies that have been ordered have been reviewed, and results considered in the medical decision making process. Disposition - Course Course Of Treatment: During the course of treatment, the patient is evaluated for right sided lower lobe pneumonia. She is also endorsing gross hematuria and was noted to have a right renal calculus, this was nonobstructing. She denies any pain to the right flank and denies any urinary symptoms. Chest x- ray obtained and reviewed to compare for changes from previous CTA. Appears to be a rounded pneumonia which has not increased or decreased in size from her previous visit. This may represent a failure of PO antibiotics or other etiology. Discussed case with Dr. Guan and Dr. Peck, hospitalist. WBC is WNL , patient is afebrile and other vital signs are stable. She appears well. There are no other signs of failure to PO antibiotics other than her Chest xray. She states she feels better than 4 days ago. UA obtained - in room appears to have a light hematuria. However, this UA was never sent to lab. She denies any urinary symptoms or flank pain. She will continue to take her PO antibiotics at home and will follow up with Dr. Heath as scheduled on Monday. She understands to return for any worsening or changing symptoms. - Diagnoses Provider Diagnoses: Right-sided chest pain Discharge - Sign-Out/Discharge Documenting (check all that apply): Patient Departure - Discharge Plan Condition: Stable Disposition: HOME Referrals: Fatemeh Stephen NP [Primary Care Provider] - Additional Instructions: Please follow up with Dr. Heath as scheduled Continue to take the antibiotics as prescribed If he develop any fevers, sweats, chills or worsening pain, return to the ED - Billing Disposition and Condition Condition: STABLE Disposition: Home
== END 2017-11-11 11:05 | disposition home or self-care (01) ==
LOC: ED 08:11
DX: J18.1 Lobar pneumonia, unspecified organism (principal); R31.0 Gross hematuria
CPT/HCPCS: 36415; 71046; 80053; 82550; 83605; 84484; 84702; 85025; 86140; 99283